=== PATIENT | male | born 1935 | race Caucasian/White ===

== ENCOUNTER 2018-05-31 18:53 | Emergency (ER) | payer MEDICARE, OTHER ==
[~2018-05-31] VITALS: Ht 180.3 cm; Wt 85.1 kg
[2018-05-31 19:33] VITALS: Ht 180.3 cm; Wt 85.1 kg
== END 2018-05-31 21:57 ==
LOC: D.ER 18:53
DX: I46.9 Cardiac arrest, cause unspecified (principal); I44.0 Atrioventricular block, first degree; I44.7 Left bundle-branch block, unspecified